=== PATIENT | female | born 1975 | race Caucasian/White ===

== ENCOUNTER → 2022-08-06 09:58 | Outpatient (BNVA) | payer OTHER, SELFPAY | PROVIDERS: PCP Internal Medicine; Visit Provider Nurse Practitioner Family | DX: Z13.89 Encounter for screening for other disorder (principal) ==

== ENCOUNTER → 2022-12-19 08:55 | Outpatient (BNVA) | payer OTHER, SELFPAY | PROVIDERS: PCP Internal Medicine; Visit Provider Nurse Practitioner Family ==

== ENCOUNTER 2023-04-10 08:02 | Outpatient (AMB) | payer OTHER, SELFPAY ==
--- NOTE | 2023-04-10 08:10 | A.OFFVIS_ITS ---
Intake Vital Signs 04/10/23 08:13 Height 5 ft 5 in Weight 174 lb BMI 29.0 BP 120/90 H Blood Pressure Location Rt brachial Position Sitting Pulse 72 Pulse Source Pulse Oximeter Pulse Oximetry (%) 99 Oxygen Delivery Method Room Air Intake Visit Reasons: 4m follow up Migraine prophylaxsis-Confirmed Intake Note: Patient presents for 4 month follow up migraine. Patient states I would say my migrainjes are a little better, I do think the medication os working most of the time. Allergies amoxicillin Allergy (Unknown, Verified 04/10/23 08:14) Unknown latex Allergy (Unknown, Verified 04/10/23 08:14) Unknown Medication List - Last Reconciled 04/10/23 by JASON Lynch acetaminophen (Tylenol) 325 mg PO QID PRN alprazolam 0.5 mg PO DAILY PRN ibuprofen (Advil) 200 mg PO Q6H PRN ibuprofen-diphenhydramine cit 200-38 mg (Advil PM) 1 cap PO BEDTIME levonorgestrel (Mirena) 1 device intrauterine magnesium oxide 400 mg PO BEDTIME 30 days ondansetron 4 mg PO Q6H PRN 30 days riboflavin (vitamin B2) 400 mg (4 x 100 mg) PO DAILY 30 days sumatriptan succinate 50 - 100 mg orally at onset of headache, may repeat in 2 hrs PRN; max 2 tabs per day or 4 tabs/week (may take with Ibuprofen or Aleve) 30 days HPI HPI Comments History of Present Illness Details 47-yr-old female presents for f/u visit. 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 Her HR, per her watch, was 160s- 180s for at least 5 minutes. She rested and took a Liquid IV drink and felt better. She also notes she has had increased stress r/t her father having increased cognitive difficulties. She has been having approx 4 migraine days per month. The Sumatriptan is almost always effective- however headache may linger for 2-7 hrs. She has stopped Magnesium- caused excess stooling. She has received Nerivio- but has not tried it yet- has not been able to read/follow the instructions while she is having a headache. [facility] Medical History Anxiety GERD (gastroesophageal reflux disease) Surgical History History of shoulder surgery Family History Father Diabetes Hypertension Mother Diabetes Cerebrovascular accident (CVA) Colon cancer Cardiovascular disease Acute kidney failure TIA (transient ischemic attack) CHF (congestive heart failure) Paternal Grandmother Leukemia Maternal Grandmother Cerebrovascular accident (CVA) Maternal Grandfather Myocardial infarction Sister Diabetes Anxiety Obesity Social History Alcohol intake: current Alcohol intake frequency: a few times a month Patient Tobacco Use Status: Former Tobacco user Quit Date: 05/29/1998 Review of Systems Const All systems reviewed & are unremarkable except as noted in HPI and below Physical Exam Vital Signs: Last Vital Signs Pulse 72 04/10/23 08:13 BP 120/90 H 04/10/23 08:13 Pulse Ox 99 04/10/23 08:13 Oxygen Delivery Method Room Air 04/10/23 08:13 BMI result Body Mass Index 29.0 Const General: cooperative and no acute distress Orientation/consciousness: patient oriented x3 HEENT Head: Yes normocephalic Resp Effort & Inspection: normal respiratory effort and able to speak in complete sentences Neuro General: patient oriented x3, gait normal and CN's II-XI intact bilaterally Cognition (Neuro): normal cognition Motor exam (neuro): 5/5 motor strength present throughout Psych Appearance: grossly normal Mental Status: mental status grossly normal Speech and movement: Normal speech and movement present Affect: normal affect Attitude: cooperative Thought process: Normal thought process present Thought content: Normal thought content present Insight: Good insight present (Psych) Judgement: Good judgement present (Psych) Assessment & Plan Assessment & Plan (1) Migraine with aura: Comment: episodic Code(s): G43.109 - Migraine with aura, not intractable, without status migrainosus (2) SVT (supraventricular tachycardia): Code(s): I47.1 - Supraventricular tachycardia Plan Pt advised to f/u w/ PCP regarding tachycardia episodes- pt may benefit from trial of Propranolol for migraine and HR control. ? For acute headache treatment: Continue Sumatriptan 100mg tab- 1/2 - 1 tab at onset of migraine, may repeat in 2 hrs (max 2 tabs per day). May take w/ Excedrin, Ibuprofen, Aleve, or Tylenol. Previous acute migraine medication trials: OTC NSAIDs, Excedrin, Sumatriptan- ? dose/effect. Acute migraine medication contraindications: None at this time. ? For headache prevention medication: Continue Riboflavin 400mg qam Stop Magnesium 400mg qhs. Trial Zofran ODt 4mg prn- pt has difficulty swallowing tabs. Previous migraine prevention medication trials: Magnesium- caused loose stools. Migraine prevention medication contraindications: None ? Pt advsied to try to use the Nerivio neuromodulation device when she does not have a migraine- so she can be comfortable using it once she does have a migraine attack, then may use nerivio qd prn. Other considerations- migraine cold caps. ? f/u in 3-4 months or sooner prn. Medications: Discontinued magnesium oxide may hold for loose stools Discontinued Reason: Patient no longer taking 400 mg PO BEDTIME 30 days 30 tabs 6RF Coding Level of Care Code Est Pt Level 4 (56653) Diagnoses Migraine with aura G43.109 SVT (supraventricular tachycardia) I47.1
[2023-04-10 08:13] VITALS: BP 120/90; PULSE 72; O2SAT 99; BMI 29.0
== END 2023-04-10 08:44 | disposition home or self-care (01) ==
PROVIDERS: PCP Internal Medicine; Visit Provider Nurse Practitioner Family
DX: G43.109 Migraine with aura, not intractable, without status migrainosus (principal); I47.1 Supraventricular tachycardia
CPT/HCPCS: 99214

== ENCOUNTER → 2023-04-10 08:02 | Outpatient (BNVA) | payer OTHER, SELFPAY | PROVIDERS: PCP Internal Medicine; Visit Provider Nurse Practitioner Family ==

== ENCOUNTER 2023-11-19 09:00 | Outpatient (AMB) | payer OTHER, SELFPAY ==
--- NOTE | 2023-11-19 09:06 | MHC.OFFVIS ---
Vital Signs 11/19/23 09:14 Height 5 ft 5 in Weight 174 lb BMI 29.0 BP 115/70 Blood Pressure Location Lt brachial Position Sitting Pulse 73 Pulse Source Pulse Oximeter Pulse Oximetry (%) 96 Oxygen Delivery Method Room Air Intake Visit Reasons: 4 mo f/u Migraines prophylaxsis-LVM Intake Note: Patient presents for 4 months f/u. Headaches are manageable. Is knowing when to take Sumatriptan. Allergies amoxicillin Allergy (Unknown, Verified 11/19/23 09:12) Unknown latex Allergy (Unknown, Verified 11/19/23 09:12) Unknown Medication List - Last Reconciled 11/19/23 by Ara Garzon, JASON acetaminophen (Tylenol) 325 mg PO QID PRN alprazolam 0.5 mg PO DAILY PRN azelastine 2 sprays intranasal BID 30 days ibuprofen (Advil) 200 mg PO Q6H PRN ibuprofen-diphenhydramine cit 200-38 mg (Advil PM) 1 cap PO BEDTIME levonorgestrel (Mirena) 1 device intrauterine ondansetron 4 mg PO Q6H PRN 30 days sumatriptan succinate 50 - 100 mg orally at onset of headache, may repeat in 2 hrs PRN; max 2 tabs per day or 4 tabs/week (may take with Ibuprofen or Aleve) 30 days HPI Comments Details: 48-yr-old female presents for f/u visit. Pt denies any significant interval medical changes. Pt has established care w/ cardiology. She is having 2-3 migraine attacks per month. But more recently having frontal bilateral sinus pressure- which she thinks may be r/t spring allergies. If these worsen, they become Migraine. She was not sure if she could take Sumatriptan for these headaches, She has never been tested for allergies. 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 She is using sumatriptan 2-3 times a month. Using Nerivio prn- which is usually helpful. Baseline headache characteristics: Aura: Sometimes may see squiggly lines. Headache: 8-9/10 Pressure or pulsating/throbbing pain Bilateral occipital region and in bilateral brow region. Sometimes may have bilateral upper maxillary sinus pain. A/w photophobia, phonophobia, osmophobia, neck tightness, nausea, not right in space dizziness, brain fog, fatigue, gen'l weakness, activity intolerance, at times speech slurring and Everette hand numbness/tingling. PFSH Medical History Anxiety GERD (gastroesophageal reflux disease) Surgical History History of shoulder surgery Family History Father Diabetes Hypertension Mother Diabetes Cerebrovascular accident (CVA) Colon cancer Cardiovascular disease Acute kidney failure TIA (transient ischemic attack) CHF (congestive heart failure) Paternal Grandmother Leukemia Maternal Grandmother Cerebrovascular accident (CVA) Maternal Grandfather Myocardial infarction Sister Diabetes Anxiety Obesity Social History Alcohol intake: current Alcohol intake frequency: a few times a month Patient Tobacco Use Status: Former Tobacco user Quit Date: 05/29/1998 Physical Exam Vital Signs: Last Vital Signs Pulse 73 11/19/23 09:14 BP 115/70 11/19/23 09:14 Pulse Ox 96 11/19/23 09:14 Oxygen Delivery Method Room Air 11/19/23 09:14 BMI result Body Mass Index 29.0 Const General: cooperative and no acute distress Orientation/consciousness: patient oriented x3 Resp Effort & Inspection: normal respiratory effort and able to speak in complete sentences Neuro General: patient oriented x3 Cranial nerves: Yes CN's II-XII intact bilaterally Cognition (Neuro): normal cognition Psych Appearance: grossly normal Mental Status: mental status grossly normal Speech and movement: Normal speech and movement present Affect: normal affect Attitude: cooperative Assessment & Plan Assessment & Plan (1) Migraine with aura: Comment: episodic Code(s): G43.109 - Migraine with aura, not intractable, without status migrainosus Category: Medical (2) Sleep difficulties: Code(s): G47.9 - Sleep disorder, unspecified Category: Medical (3) Seasonal allergies: Code(s): J30.2 - Other seasonal allergic rhinitis Category: Medical Plan Foloow-up w/ cardiology as scheduled. pt may benefit from trial of Propranolol for migraine and HR control. ? For acute headache treatment: Continue Sumatriptan 100mg tab- 1/2 - 1 tab at onset of migraine, may repeat in 2 hrs (max 2 tabs per day). May take w/ Excedrin, Ibuprofen, Aleve, or Tylenol. May trial Sumatriptan for sinus headache. Trial Azelastine nasal spray 1-2 sprays in each nostril qhs- in hopes this helps sinus headaches. Continue Nerivio 45 minute neurostimulation prn. Previous acute migraine medication trials: OTC NSAIDs, Excedrin, Sumatriptan- ? dose/effect. Acute migraine medication contraindications: None at this time. ? For headache prevention medication: Continue Riboflavin 400mg qam Zofran ODt 4mg prn- pt has difficulty swallowing tabs. Previous migraine prevention medication trials: Magnesium- caused loose stools. Migraine prevention medication contraindications: None ? ? f/u in 6 months or sooner prn. Medications: New azelastine administer into each nostril 2 sprays intranasal BID 30 days 30 mL 3RF Refilled sumatriptan succinate (0.5 - 1 x 100 mg) 50 - 100 mg orally at onset of headache, may repeat in 2 hrs PRN; max 2 tabs per day or 4 tabs/week (may take with Ibuprofen or Aleve) 30 days 12 tabs 6RF migraine headache Coding Level of Care Code Est Pt Level 4 (70986) Diagnoses Migraine with aura G43.109 Sleep difficulties G47.9 Seasonal allergies J30.2
[2023-11-19 09:14] VITALS: BP 115/70; PULSE 73; O2SAT 96; BMI 29.0
== END 2023-11-19 09:56 | disposition home or self-care (01) ==
PROVIDERS: PCP Internal Medicine; Visit Provider Nurse Practitioner Family
DX: G43.109 Migraine with aura, not intractable, without status migrainosus (principal); G47.9 Sleep disorder, unspecified; J30.2 Other seasonal allergic rhinitis
CPT/HCPCS: 99214

== ENCOUNTER → 2023-11-19 09:00 | Outpatient (BNVA) | payer OTHER, SELFPAY | PROVIDERS: PCP Internal Medicine; Visit Provider Nurse Practitioner Family ==

== ENCOUNTER 2024-06-13 08:02 | Outpatient (AMB) | payer OTHER, SELFPAY ==
[2024-06-13 08:23] VITALS: BP 122/74; PULSE 69; O2SAT 99; BMI 287.5
--- NOTE | 2024-06-13 08:23 | MHC.OFFVIS ---
Vital Signs 06/13/24 08:23 Height 5 ft 5 in Weight 1728 lb BMI 287.5 BP 122/74 Blood Pressure Location Lt brachial Position Sitting Pulse 69 Pulse Source Pulse Oximeter Pulse Oximetry (%) 99 Oxygen Delivery Method Room Air Intake Visit Reasons: 7 month F/U Accompanied by: Self / Same As Patient Allergies amoxicillin Allergy (Unknown, Verified 06/13/24 08:26) Unknown latex Allergy (Unknown, Verified 06/13/24 08:26) Unknown Medication List - Last Reconciled 06/13/24 by JASON Lynch acetaminophen (Tylenol) 325 mg PO QID PRN alprazolam 0.5 mg PO DAILY PRN azelastine 2 sprays intranasal BID 30 days ibuprofen (Advil) 200 mg PO Q6H PRN ibuprofen-diphenhydramine cit 200-38 mg (Advil PM) 1 cap PO BEDTIME levonorgestrel (Mirena) 1 device intrauterine ondansetron 4 mg PO Q6H PRN 30 days sumatriptan succinate 50 - 100 mg orally at onset of headache, may repeat in 2 hrs PRN; max 2 tabs per day or 4 tabs/week (may take with Ibuprofen or Aleve) 30 days Do you need a note to return to daycare/school/sports/work: No HPI Comments Details: 48-yr-old female presents for f/u visit. Pt reports she underwent a cardiac ablation in Mar, which she feels was very effective. She is having 1-2 migraine attacks per month. Once recent migraine was more severe, more severe nausea, longer duration despite taking her triptan and Nerivio- this one in particular was triggered by family stress. She does not think she took the zofran as it was in her kitchen and she could not get up. . She is trying to help manage her stress a it better. She is using sumatriptan 2-3 times a month. Using Nerivio prn- which is usually helpful. Baseline headache characteristics: Aura: Sometimes may see squiggly lines. Headache: 8-9/10 Pressure or pulsating/throbbing pain Bilateral occipital region and in bilateral brow region. Sometimes may have bilateral upper maxillary sinus pain. A/w photophobia, phonophobia, osmophobia, neck tightness, nausea, not right in space dizziness, brain fog, fatigue, gen'l weakness, activity intolerance, at times speech slurring and Everette hand numbness/tingling. PFSH Medical History Anxiety GERD (gastroesophageal reflux disease) Surgical History History of shoulder surgery Family History Father Diabetes Hypertension Mother Diabetes Cerebrovascular accident (CVA) Colon cancer Cardiovascular disease Acute kidney failure TIA (transient ischemic attack) CHF (congestive heart failure) Paternal Grandmother Leukemia Maternal Grandmother Cerebrovascular accident (CVA) Maternal Grandfather Myocardial infarction Sister Diabetes Anxiety Obesity Social History Alcohol intake: current Alcohol intake frequency: a few times a month Patient Tobacco Use Status: Former Tobacco user Physical Exam Vital Signs: Last Vital Signs Pulse 69 06/13/24 08:23 BP 122/74 06/13/24 08:23 Pulse Ox 99 06/13/24 08:23 Oxygen Delivery Method Room Air 06/13/24 08:23 BMI result Body Mass Index 287.5 Const General: cooperative and no acute distress Orientation/consciousness: patient oriented x3 Resp Effort & Inspection: normal respiratory effort and able to speak in complete sentences Neuro General: patient oriented x3 Cranial nerves: Yes CN's II-XII intact bilaterally Cognition (Neuro): normal cognition Psych Appearance: grossly normal Mental Status: mental status grossly normal Speech and movement: Normal speech and movement present Affect: normal affect Attitude: cooperative Assessment & Plan Assessment & Plan (1) Migraine with aura: Comment: episodic Code(s): G43.109 - Migraine with aura, not intractable, without status migrainosus Category: Medical (2) Sleep difficulties: Code(s): G47.9 - Sleep disorder, unspecified Category: Medical (3) Seasonal allergies: Code(s): J30.2 - Other seasonal allergic rhinitis Category: Medical (4) Nausea: Code(s): R11.0 - Nausea Category: Medical Plan Follow-up with cardiology as scheduled. ? For acute headache treatment: Continue Sumatriptan 100mg tab- 1/2 - 1 tab at onset of mild-moderate migraine, may repeat in 2 hrs (max 2 tabs per day). May take w/ Ibuprofen, Aleve, or Tylenol. Start sumatriptan 3 mg subcu injection p.r.n. severe migraine a/w nausea. Zofran ODt 4-8mg prn q4-6 hrs- pt has difficulty swallowing tabs. Benadryl 25-50 mg q.4 to 6 hours p.r.n. for rescue treatment. Electrolyte replacement beverages, such as liquid IV, 1-2 servings per day as needed. Continue Nerivio 45 minute neurostimulation prn. Previous acute migraine medication trials: OTC NSAIDs, Excedrin, Sumatriptan- ? dose/effect. Acute migraine medication contraindications: Sumatriptan 4 mg and 6 mg subcu injection due to latex allergy. ? For headache prevention medication: Concur with strategies to optimize stress management- if becomes ineffective, could consider referral to CBT, neuro biofeedback, or ACT type headache specific treatment. Continue Riboflavin 400mg qam Azelastine nasal spray 1-2 sprays in each nostril qhs- in hopes this helps sinus headaches. May use review 45 minute neurostimulation q.o.d.. Previous migraine prevention medication trials: Magnesium- caused loose stools. Migraine prevention medication contraindications: None ? ? f/u in 6 months or sooner prn. Medications: New diphenhydramine HCl (Benadryl) 25 - 50 mg (1 - 2 x 25 mg) PO BEDTIME 30 days PRN 20 caps 6RF migraine headache sumatriptan succinate do not exceed 4 doses per 24 hrs 3 mg (0.5 mL) subcut Q1H 1 month PRN 2 mL 6RF migraine headache MDD 12mg diphenhydramine HCl (Benadryl) 25 - 50 mg (1 - 2 x 25 mg) PO Q4-6H 30 days PRN 20 caps 6RF migraine headache Changed From ondansetron 4 mg PO Q6H 30 days PRN 20 tabs 2RF nausea and vomiting To ondansetron 4 - 8 mg (1 - 2 x 4 mg) PO Q4-6H 30 days PRN 24 tabs 6RF nausea and vomiting Refilled sumatriptan succinate (0.5 - 1 x 100 mg) 50 - 100 mg orally at onset of headache, may repeat in 2 hrs PRN; max 2 tabs per day or 4 tabs/week (may take with Ibuprofen or Aleve) 30 days 12 tabs 6RF migraine headache Coding Level of Care Code Est Pt Level 4 (66247) Diagnoses Migraine with aura G43.109 Sleep difficulties G47.9 Seasonal allergies J30.2 Nausea R11.0
== END 2024-06-13 09:10 | disposition home or self-care (01) ==
PROVIDERS: PCP Internal Medicine; Visit Provider Nurse Practitioner Family
DX: G43.109 Migraine with aura, not intractable, without status migrainosus (principal); G47.9 Sleep disorder, unspecified; J30.2 Other seasonal allergic rhinitis; R11.0 Nausea
CPT/HCPCS: 99214

== ENCOUNTER 2025-04-28 07:57 | Outpatient (AMB) | payer OTHER, SELFPAY ==
--- NOTE | 2025-04-28 07:56 | MHC.OFFVIS ---
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 Required: No Accompanied by: Self / Same As Patient Allergies amoxicillin Allergy (Unknown, Verified 04/28/25 07:56) Unknown latex Allergy (Unknown, Verified 04/28/25 07:56) Unknown Medication List - Last Reconciled 04/28/25 by JASON Lynch acetaminophen (Tylenol) 325 mg PO QID PRN alprazolam 0.5 mg PO DAILY PRN digital therapeutic,SARAH device ([employer] Digital Tommy (migraine)) As directed diphenhydramine HCl (Benadryl) 25 - 50 mg (1 - 2 x 25 mg) PO Q4-6H PRN 30 days fluocinolone acetonide oil 0.01% 2 drps otic (ears) BID ibuprofen (Advil) 200 mg PO Q6H PRN ibuprofen-diphenhydramine cit 200-38 mg (Advil PM) 1 cap PO BEDTIME levonorgestrel (Mirena) 1 device intrauterine ondansetron 4 - 8 mg (1 - 2 x 4 mg) PO Q4-6H PRN 30 days sumatriptan succinate 50 - 100 mg orally at onset of headache, may repeat in 2 hrs PRN; max 2 tabs per day or 4 tabs/week (may take with Ibuprofen or Aleve) 30 days sumatriptan succinate 3 mg (0.5 mL) subcut Q1H PRN 1 month MDD 12mg triamcinolone acetonide 0.1% appl topical BID PRN Do you need a note to return to daycare/school/sports/work: No HPI Comments Details: 49-yr-old female presents for f/u visit of migraine She had cardiology f/u after the Mar 2024 cardiac ablation, and everything still looks good. She denies any symptomatic palpiations. She is having 1 migraine attacks per month. She did have an interval more severe attack, which might have been attributed to stress, though she did not realize she was having before she had the migraine attack. And she notes that she did not have her sumatriptan tabs, as her pharmacy would not fill this as she also has the order for Zembrace. In sometimes, she would rather take the sumatriptan tabs then the same brace, sumatriptan injection. Using Nerivio prn- which is usually helpful. She is wondering if we can take over managing her alprazolam, which she uses for intermittent stress, such as end of her monthly work billing cycle. She notes that her PCP office has been prescribing this to her, but asked her to start seeing a mental health prescriber and therapist, however they suggested she see our either closed or not currently accepting patients. She notes that when her dress level is increased, this may trigger a migraine attack. 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 Baseline headache characteristics: Aura: Sometimes may see squiggly lines. Headache: 8-9/10 Pressure or pulsating/throbbing pain Bilateral occipital region and in bilateral brow region. Sometimes may have bilateral upper maxillary sinus pain. A/w photophobia, phonophobia, osmophobia, neck tightness, nausea, not right in space dizziness, brain fog, fatigue, gen'l weakness, activity intolerance, at times speech slurring and Everette hand numbness/tingling. [facility] Medical History Anxiety GERD (gastroesophageal reflux disease) Surgical History History of shoulder surgery Family History Father Diabetes Hypertension Mother Diabetes Cerebrovascular accident (CVA) Colon cancer Cardiovascular disease Acute kidney failure TIA (transient ischemic attack) CHF (congestive heart failure) Paternal Grandmother Leukemia Maternal Grandmother Cerebrovascular accident (CVA) Maternal Grandfather Myocardial infarction Sister Diabetes Anxiety Obesity Social History Alcohol intake: current Alcohol intake frequency: a few times a month Patient Tobacco Use Status: Former Tobacco user Physical Exam Vital Signs: Last Vital Signs Pulse 77 10/31/25 07:57 BP 120/76 04/28/25 07:57 Pulse Ox 97 04/28/25 07:57 Oxygen Delivery Method Room Air 04/28/25 07:57 BMI result Body Mass Index 28.0 Const General: cooperative and no acute distress Orientation/consciousness: patient oriented x3 Resp Effort & Inspection: normal respiratory effort and able to speak in complete sentences Neuro General: patient oriented x3 Cranial nerves: Yes CN's II-XII intact bilaterally Cognition (Neuro): normal cognition Psych Appearance: grossly normal Mental Status: mental status grossly normal Speech and movement: Normal speech and movement present Affect: normal affect Attitude: cooperative Assessment & Plan Assessment & Plan (1) Migraine with aura: Comment: episodic Code(s): G43.109 - Migraine with aura, not intractable, without status migrainosus Category: Medical Qualifiers: Status migrainosus presence: without status migrainosus Intractability: not intractable Qualified Code(s): G43.109 - Migraine with aura, not intractable, without status migrainosus (2) Sleep difficulties: Code(s): G47.9 - Sleep disorder, unspecified Category: Medical (3) Seasonal allergies: Code(s): J30.2 - Other seasonal allergic rhinitis Category: Medical (4) Nausea: Code(s): R11.0 - Nausea Category: Medical (5) Anxiety: Code(s): F41.9 - Anxiety disorder, unspecified Category: Medical Plan Follow-up with cardiology as scheduled. For anxiety: We will refilled the alprazolam 0.5 mg daily as needed. However, discussed that there are more effective strategies to manage chronic anxiety and stress, therefore I will initiate a referral to a mental health clinic that can provide both psychiatric and therapeutic counseling services. If we can not find a clinic accepting new patients, we will refer her to [place] [facility] [place] of medication management. ? For acute headache treatment: Advised her that she can have both sumatriptan tablets and injections, as they are used for different migraine attack severities. Continue Sumatriptan 100mg tab- 1/2 - 1 tab at onset of mild-moderate migraine, may repeat in 2 hrs (max 2 tabs per day). May take w/ Ibuprofen, Aleve, or Tylenol. Continue sumatriptan 3 mg subcu injection p.r.n. severe migraine a/w nausea. Zofran ODt 4-8mg prn q4-6 hrs- pt has difficulty swallowing tabs. Benadryl 25-50 mg q.4 to 6 hours p.r.n. for rescue treatment. Electrolyte replacement beverages, such as liquid IV, 1-2 servings per day as needed. Continue Nerivio 45 minute neurostimulation prn. Previous acute migraine medication trials: OTC NSAIDs, Excedrin, Sumatriptan- ? dose/effect. Acute migraine medication contraindications: Sumatriptan 4 mg and 6 mg subcu injection due to latex allergy. Future considerations: Emeterm smart antinausea watch. ? For headache prevention medication: Concur with strategies to optimize stress management- if becomes ineffective, could consider referral to CBT, neuro biofeedback, or ACT type headache specific treatment. Continue Riboflavin 400mg qam Azelastine nasal spray 1-2 sprays in each nostril qhs- in hopes this helps sinus headaches. May use Nerivio 45 minute neurostimulation q.o.d.. Previous migraine prevention medication trials: Magnesium- caused loose stools. Migraine prevention medication contraindications: None ? ? f/u in 6 months or sooner prn. Orders: Referrals Psychiatry Referral F41.9 - Anxiety disorder, unspecified Medications: Changed From alprazolam 0.5 mg PO DAILY PRN anxiety To alprazolam 0.5 mg PO DAILY PRN 30 tabs 1RF anxiety 30 days Refilled sumatriptan succinate 50 - 100 mg orally at onset of headache, may repeat in 2 hrs PRN; max 2 tabs per day or 4 tabs/week (may take with Ibuprofen or Aleve) 12 tabs 6RF migraine headache 30 days ondansetron 4 - 8 mg (1 - 2 x 4 mg) PO Q4-6H PRN 24 tabs 6RF nausea and vomiting 30 days Coding Level of Care Code Est Pt Level 4 (18170) Diagnoses Migraine with aura and without status migrainosus, not intractable G43.109 Status migrainosus presence: without status migrainosus Intractability: not intractable Sleep difficulties G47.9 Seasonal allergies J30.2 Nausea R11.0 Anxiety F41.9
[2025-04-28 07:57] VITALS: BP 120/76; PULSE 77; O2SAT 97; BMI 28.0
--- OUTSIDE RECORDS SUMMARY | 2025-04-28 08:00 | XMS_ITS | Clinical Summary ---
Author Organization [address] [facility] Address [address] [place] [address] Phone Care Team Providers Care Assembly Lead Person Name Role Phone Sergo Curran MD Primary Care Provider [phone] Allergies Active Allergy Reactions Criticality Noted Date Comments Amoxicillin Trihydrate 08/17/2006 thrush in mouth Latex Rash Low 06/09/2024 Medications ibuprofen (ADVIL,MOTRIN) 200 mg tablet Take 200 mg by mouth every 6 hours as needed. Active levonorgestreL (Mirena) 21 mcg/24 hr (8 yrs) 52 mg IUD 5 yrs implant Active Zembrace Symtouch 3 mg/0.5 mL pen injector injection Inject 0.5 mL (3 mg total) under the skin 1 (one) time if needed. 5 Active ondansetron ODT (ZOFRAN-ODT) 4 mg disintegrating tablet Dissolve 1 tablet (4 mg total) on top of the tongue every 6 (six) hours if needed for nausea. 5 Active hydrOXYzine HCL (ATARAX) 25 mg tablet TAKE 1 TABLET (25 MG TOTAL) BY MOUTH TWICE A DAY NEEDED FOR ANXIETY 30 tablet 5 5 Active fluocinolone acetonide oiL 0.01 % dropsIndications:D ry both ear canals 2 drops into both ears twice a day as needed for dry and itchy ears. 1 each 3 5 Active fluocinolone acetonide oiL 0.01 % dropsIndications:D ry both ear canals 2 drops into both ears twice a day as needed for dry and itchy ears. 1 each 3 025 Discontin ued(Reord er) Active Problems Problem Noted Date Diagnosed Date Varicose veins of lower extremity 09/27/2024 Chest pain 09/30/2023 Overview (03/30/2024): Last Assessment & Plan: The patient has a history of atypical chest discomfort. She underwent an exercise stress test where she achieved 89% of MPHR and developed symptoms of chest heaviness and palpitations at peak exercise with no ischemic EKG changes. Subsequently, she underwent a stress echocardiogram September 2023 which showed no echocardiographic evidence of exercise-induced cardiac ischemia. No ischemic EKG changes with exercise were noted. She also underwent an echocardiogram which showed normal LV function and mild tricuspid regurgitation and mild pulmonic valve insufficiency. We discussed these results in depth today. She has a significant amount of anxiety regarding her symptoms and recent testing. We discussed that she could undergo a cardiac CT scan for further evaluation. Given her symptoms and risk factors for CAD, we will need to consider the possibility of underlying coronary artery disease as a cause of her symptoms. Therefore, the patient has an intermediate pretest probability for the presence of obstructive coronary artery disease (2021 ACC chest pain guidelines). The patient had a stress test in the past that did not show any evidence of ischemia. As such, given her exertional and continued symptoms, we will proceed with a cardiac CT scan in order to evaluate for any obstructive coronary artery disease as a cause of her symptoms (the use of a cardiac CT scan for evaluation of possible coronary artery disease is recommended by 2021 ACC chest pain guidelines as a level 1 A recommendation). Assessment & Plan (03/21/2025 12:50 PM EDT): Orders: ECG 12 lead Adjustment disorder with mixed anxiety and depre ssed mood 03/08/2019 Anxiety state 06/01/2006 Overview (03/30/2024): Anxiety state, unspecified Headache 02/09/2006 Resolved Problems Problem Noted Date Diagnosed Date Resolved Date SVT (supraventricular tachyc ardia) ([facility] V24) 03/02/2024 08/31/2024 Palpitations 04/10/2023 08/31/2024 Overview (03/30/2024): Last Assessment & Plan: The patient has a history of palpitations. She has not had any prolonged episodes of palpitations which prompted recent ER visit last year. She was thought to have presumptive SVT although no clear EKG evidence was documented. She underwent a 48-hour Holter monitor September 2023 which showed no significant arrhythmias. It was also noted that she had no symptoms during the monitoring period. Will arrange for a 30 day looping monitor for further evaluation given she did not have any episodes or symptoms during the 48 hour Holter monitor completed. We also discussed that given she is under significant amount of stress recently, this could be contributing to her symptoms as well. She will continue to follow with her primary care provider. We reviewed the possible triggers of palpitations including caffeine consumption, alcohol consumption, cigarette smoking, inadequate sleeping patterns, and stress. She also underwent TSH which was noted to be within normal limits. At this point, the patient will attempt to avoid the usual triggers. I will notify her of the results as soon as the become available. We also discussed the use of [employer] pranav if she does not have any symptomatic episodes during the looping monitor period. Abnormal mammogram 06/19/2020 Overview (03/30/2024): 06/12/2020: [facility] [place] Encounters Date Type Department Care Team Description 04/17/2025 8:00 AM EDT Office Visit [facility] [address] [facility] [place] [address] Sergo Curran MD Anxiety state (Primary Dx); Dry both ear canals 03/21/2025 9:20 AM EDT Office Visit [facility] [address] [place] [address] Carmen Olvera MD SVT (supraventricular tachycardia) ([facility] V24) (Primary Dx); Chest pain, unspecified type; PSVT (paroxysmal supraventricular tachycardia) (CMS/HCC V24) 03/02/2025 1:57 PM EDT - 03/02/2025 11:59 PM EDT Hospital Encounter Radiology Department - [address] [address] Abnormal mammogram Discharge Disposition: Home or Self Care 02/06/2025 7:35 AM EDT - 02/06/2025 11:59 PM EDT Hospital Encounter Radiology Department - [address] [address] Encounter for screening mammogram for breast cancer Discharge Disposition: Home or Self Care from Last 3 Months Immunizations Immunization Administration Dates Next Due Influenza Quadravalent, MDCK , 0.5ml, preservative free (Flucelvax) 6mo and older 03/13/2020 Influenza Quadrivalent, 0.5m l, preservative free (Fluarix; FluLaval; Fluzone) ages 6mo and older (Afluria) 3yo and older 03/30/2023,03/18/2022,04/29/2021 Influenza trivalent, 0.5mL, preservative free (Fluarix; FluLaval; Fluzone) ages 6mo and older (Afluria) 3 years and older 04/16/2025 Influenza trivalent, MDCK, 0 .5mL, preservative free (Flucelvax) 6mo and older 03/07/2024 Influenza trivalent, with preservative (Fluzone; Afluria) 6mo and older 04/13/2019,03/23/2018,02/20/2017,2015 MMR, measles mumps and rubel la Live (Priorix; M-M-R II) 12mo and older 12/27/1990,02/16/1978 Moderna SARS-CoV-2 COVID-19, mRNA, LNP-S, preservative free 03/30/2023 PPD Test 02/13/2006 Td Tetanus diptheria (Tdvax) 7yo and older 12/15/2019,12/27/1990 Tdap Tetanus diptheria acell ular pertussis (Boostrix; Adacel) 7yo and older 02/13/2015 Surgical History Surgery Date Site/Laterality Comments ESOPHAGOGASTRODUODENOSCOPY ABLATION Done on 04/14/2024 at [facility] w SR indications:SVT ABLATION DONE ON 04/14/2024 AT [facility] W SR INDICATIONS:SVT ABLATION Medical History Medical History Date Comments Abnormal mammogram 06/19/2020 Dizziness Family history of colon cancer in mother Colon polyp IN FATHER Migraine Pectus excavatum SVT (supraventricular tachycardia) ([facility] V24) 03/02/2024 Family History Medical History Relation Name Comments Diabetes Father HTN Father Heart attack Maternal Grandfather Stroke Maternal Grandmother Diabetes Mother Stroke Mother Cancer Paternal Grandfather Leukemia Paternal Grandfather Relation Name Status Comments Father Alive Maternal Grandfather Maternal Grandmother Mother Alive Paternal Grandfather Social History Tobacco Use Types Packs/Day Years Used Date Smoking Tobacco: Former Cigarettes Smokeless Tobacco: Never Tobacco Cessation:Counseling Given: Not Answered Alcohol Use Standard Drinks/Week Comments Yes 0 (1 standard drink = 0.6 oz pur e alcohol) OCC Housing Instability Answer Date Recorde d Are you worried that in the next 2 months you may not have stable housing? No 04/10/2025 Food Access & Nutrition Answer Date Rec orded Do you have access to a vari ety of food including fruits and vegetables? Yes 04/10/2025 Access to Healthcare Answer Date Record ed Within the last 3 months, ho w many times did you visit the emergency department for your medical care? 0 04/10/2025 Health Literacy Answer Date Recorded How often do you need to hav e someone help you when you read instructions, pamphlets, or other written material from your doctor or pharmacy? Never 04/10/2025 Caregiver: How often do you need to have someone help you when you read instructions, pamphlets, or other written material from your doctor or pharmacy? Not on file 04/10/2025 Financial Risk Answer Date Recorded How hard is it for you to pa y for the very basics like food, housing, medical care, and air conditioning / heating? Not very hard 04/10/2025 Transportation Answer Date Recorded Has the lack of transportati on kept you from meetings, work, or from getting things needed for daily living? No Has the lack of transportati on kept you from medical appointments or from getting medications? No 04/10/2025 Social Isolation Answer Date Recorded How often do you feel lonely or isolated from th ose around you? Never 04/10/2025 Food Risk Answer Date Recorded Within the past 12 months we worried whether our food would run out before we got money to buy more. Never true 04/10/2025 Within the past 12 months th e food we bought just didn't last and we didn't have money to get more. Never true 04/10/2025 Dependent Care Answer Date Recorded Do you need help finding or paying for care for your loved ones. For example, early childhood education coordinator or elderly care for an older adult? Patient declined 04/10/2025 Education Answer Date Recorded Do you think completing more education or training, like finishing a GED, going to college, or learning a trade, would be helpful for you? Yes 04/10/2025 Employment and Income Answer Date Recor ded During the last four weeks, have you been actively looking for work? No 04/10/2025 Living Situation Answer Date Recorded What is your living situation? Unrecognized valu e 04/10/2025 Comments No Sex and Gender Information Value Date Recorded Sex Assigned at Not on file Legal Sex Female 10:12 PM EST Gender Identity Not on file Sexual Orientation Not on file Obstetrics History Para Term AB IAB SAB Ectopic Multiple Livin g Live Births 1 1 1 Date Outcome GA Total Labor Labor/2nd/3rd Weight Sex Type Anes PTL Faina A1 A5 Name Clin Term Last Filed Vital Signs Vital Sign Reading Time Taken Comments Blood Pressure 122/80 04/17/2025 8:03 AM EDT Pulse 72 04/17/2025 8:03 AM EDT Temperature - - Respiratory Rate - - Oxygen Saturation 96% 03/21/2025 9:27 AM EDT Inhaled Oxygen Concentration - - Weight 75.3 kg (166 lb) 04/17/2025 8:03 AM EDT Height 165.1 cm (5' 5 ) 04/17/2025 8:03 AM EDT Body Mass Index 27.62 04/17/2025 8:03 AM EDT Plan of Treatment Health Maintenance Due Date Last Done Comments Colorectal Cancer Screening: Colonoscopy 1976 Hepatitis B Vaccines (1 of 3 - 19+ 3-dose series) 11/08/1995 HIV Screening 05/31/2022 Hepatitis C Screening 05/31/2022 Cervical Cancer Screening: Pap Smear 10/26/2025 10/26/2022 Social Influencers of Health Screening 04/10/2026 04/10/2025 Breast Cancer Screening 03/02/2027 03/02/20 25, 02/06/2025, 01/29/2024, Additional history exists Cholesterol Screening (Lipid Panel) 01/28/2029 01/29/2024, 01/29/2024 DTaP,Tdap,and Td Vaccines (4 - Td or Tdap) 12/14/2029 12/15/2019, 02/13/2015, 12/27/1990 RSV Immunization Adult Patients (1 - 1-dose 75+ series) 11/08/2051 MMR Vaccines Completed 12/27/1990, 02/16/1978 Depression Screening Completed 04/10/2025 COVID-19 Vaccine Completed 04/16/2025, 02/2024, 03/30/2023, Additional history exists Influenza Vaccine Completed 04/16/2025, , 03/30/2023, Additional history exists HIB Vaccines Aged Out No longer eligi ble based on patient's age to complete this topic HPV Vaccines Aged Out No longer eligi ble based on patient's age to complete this topic Hepatitis A Vaccines Aged Out No long er eligible based on patient's age to complete this topic IPV Vaccines Aged Out No longer eligi ble based on patient's age to complete this topic Meningococcal ACWY Vaccine Aged Out N o longer eligible based on patient's age to complete this topic Meningococcal B Vaccine Aged Out No l onger eligible based on patient's age to complete this topic Pneumococcal Vaccine: Pediatrics (0 to 5 Years) and At-Risk Patients (6 to 49 Years) Aged Out No longer eligible based on patient's age to complete this topic RSV Immunization Patients Under 20 months Aged Out No longer eligible based on patient's age to complete this topic Varicella Vaccines Aged Out No longer eligible based on patient's age to complete this topic Procedures Procedure Name Priority Date/Time Associated Diagnosis Comments ECG 12-LEAD Routine 03/21/2025 9:38 AM EDT SVT (supraventricular tachycardia) (CMS/HCC V24) Chest pain, unspecified type MG MAMMO DIGITAL DIAGNOSTIC W EARL RIGHT Routine 03/02/2025 2:03 PM EDT Abnormal mammogram MG MAMMO DIGITAL SCREENING W EARL BILAT Routine 02/06/2025 7:54 AM EDT Encounter for screening mammogram for breast cancer LIPID PANEL Routine 01/29/2024 HM PAP SMEAR Routine 10/26/2022 from Last 3 Months or Most Recently Relevant to Health Maintenance Results * ECG 12 lead (03/21/2025 9:38 AM EDT) Ventricular Rate ECG 62 BPM GEMUSE Atrial Rate 62 BPM GEMUSE P-R Interval 136 ms GEMUSE QRS Duration 96 ms GEMUSE Q-T Interval 414 ms GEMUSE QTc 420 ms GEMUSE P Wave [place] 66 degrees GEMUSE R [place] 11 degrees GEMUSE T [place] 43 degrees GEMUSE ECG Interpretation Normal sinus rhythm Low voltage QRS When compared with ECG of 09-JUN-2024 08:54, Nonspecific T wave abnormality , improved in Anterior leads Confirmed by JAVON OLVERA ([id number]) on 03/21/2025 7:56:32 PM GEMUSE 03/21/2025 9:38 AM EDT 03/21/2025 7:56 PM EDT us Carmen Olvera MD ECG ORDERABLES Final Resu lt GEMUSE * MG Mammo Digital Diagnostic w Earl Right (03/02/2025 2:03 PM EDT) Anatomical Region Laterality Modality Breast Right Mammography 03/02/2025 2:05 PM EDT Impressions 03/02/2025 2:18 PM EDT 1. No mammographic evidence of malignancy 2. Scattered fibroglandular tissue BI-RADS CATEGORY: 2 - BENIGN RECOMMENDATION: Return to annual mammography. -------- FINAL REPORT -------- Dictated By: Waleska Denis Dictated Date: 03/02/2025 14:05 ET Assigned Physician: Waleska Denis Reviewed and Electronically Signed By: Waleska Denis Signed Date: 03/02/2025 14:18 ET Workstation ID: [id number] Transcribed By: Self Edit Transcribed Date: 03/02/2025 14:05 ET Narrative 03/02/2025 2:18 PM EDT RIGHT DIGITAL 3D DIAGNOSTIC MAMMOGRAPHY HISTORY: Workup for CC view lateral middle depth asymmetry COMPARISON: Mammogram from 02/06/2025 Technique: CC spot compression, full-field ML 3-D FINDINGS: BREAST DENSITY: B - There are scattered areas of fibroglandular density. Right breast CC view lateral middle depth asymmetry becomes equal in density on spot compression and is consistent with benign summation of fibroglandular tissue. Procedure Note Waleska Denis MD - 03/02/2025 RIGHT DIGITAL 3D DIAGNOSTIC MAMMOGRAPHY HISTORY: Workup for CC view lateral middle depth asymmetry COMPARISON: Mammogram from 02/06/2025 Technique: CC spot compression, full-field ML 3-D FINDINGS: BREAST DENSITY: B - There are scattered areas of fibroglandular density. Right breast CC view lateral middle depth asymmetry becomes equal indensity on spot compression and is consistent with benign summation offibroglandular tissue. IMPRESSION: 1. No mammographic evidence of malignancy 2. Scattered fibroglandular tissue BI-RADS CATEGORY: 2 - BENIGN RECOMMENDATION: Return to annual mammography. -------- FINAL REPORT -------- Dictated By: Waleska Denis Dictated Date: 03/02/2025 14:05 ET Assigned Physician: Waleska Denis Reviewed and Electronically Signed By: Waleska Denis Signed Date: 03/02/2025 14:18 ET Workstation ID: [id number] Transcribed By: Self Edit Transcribed Date: 03/02/2025 14:05 ET us Sergo Curran MD IMG BI PROCEDURES Final Result * (ABNORMAL) MG Mammo Digital Screening w Earl bilat (02/06/2025 7:54 AM EDT) Anatomical Region Laterality Modality Breast Bilateral Mammography 02/07/2025 3:13 PM EDT Impressions 02/07/2025 3:18 PM EDT 1. Left: No mammographic evidence of malignancy 2. Right: Indeterminate CC view lateral middle depth asymmetry 3. Scattered fibroglandular tissue BI-RADS CATEGORY: 0 - INCOMPLETE - NEED ADDITIONAL IMAGING EVALUATION RECOMMENDATION: Additional right breast imaging recommended. Right breast CC view spot compression, full-field ML, targeted ultrasound Mammo Location: [facility], [address] [place] [address], [phone], . -------- FINAL REPORT -------- Dictated By: Waleska Densi Dictated Date: 02/07/2025 15:13 ET Assigned Physician: Waleska Denis Reviewed and Electronically Signed By: Waleska Denis Signed Date: 02/07/2025 15:18 ET Workstation ID: [id number] Transcribed By: Self Edit Transcribed Date: 02/07/2025 15:13 ET Narrative 02/07/2025 3:18 PM EDT A BILATERAL DIGITAL 3D SCREENING MAMMOGRAPHY HISTORY: Routine screening. COMPARISON: Multiple priors dating back to 06/12/2020 Technique: Bilateral full field digital mammography (3D) was performed using standard CC and MLO projections CAD was used to evaluate this mammogram. FINDINGS: Right: Indeterminate CC view lateral middle depth asymmetry Left: No suspicious masses, groups of microcalcification or areas of architectural distortion identified. Stable typically benign parenchymal asymmetries. BREAST DENSITY: B - There are scattered areas of fibroglandular density. Procedure Note Waleska Denis MD - 02/07/2025 A BILATERAL DIGITAL 3D SCREENING MAMMOGRAPHY HISTORY: Routine screening. COMPARISON: Multiple priors dating back to 06/12/2020 Technique: Bilateral full field digital mammography (3D) was performedusing standard CC and MLO projections CAD was used to evaluate this mammogram. FINDINGS: Right: Indeterminate CC view lateral middle depth asymmetry Left: No suspicious masses, groups of microcalcification or areas ofarchitectural distortion identified. Stable typically benign parenchymalasymmetries. BREAST DENSITY: B - There are scattered areas of fibroglandular density. IMPRESSION: 1. Left: No mammographic evidence of malignancy 2. Right: Indeterminate CC view lateral middle depth asymmetry 3. Scattered fibroglandular tissue BI-RADS CATEGORY: 0 - INCOMPLETE - NEED ADDITIONAL IMAGING EVALUATION RECOMMENDATION: Additional right breast imaging recommended. Right breast CC view spotcompression, full-field ML, targeted ultrasound Mammo Location: [facility], [address] [place] [address], [id number], . -------- FINAL REPORT -------- Dictated By: Waleska Dneis Dictated Date: 02/07/2025 15:13 ET Assigned Physician: Waleska Denis Reviewed and Electronically Signed By: Waleska Denis Signed Date: 02/07/2025 15:18 ET Workstation ID: [id number] Transcribed By: Self Edit Transcribed Date: 02/07/2025 15:13 ET Sergo Curran MD IMG BI PROCEDURES Final Result * (ABNORMAL) Lipid panel (01/29/2024) LDL/HDL Ratio 3 0 - 4 Triglycerides 68 0 - 150 mg/dL Cholesterol 207(A) 0 - 200 mg/dL HDL 82 >=40 mg/dL LDL Cholesterol 112(A) 0 - 100 mg/dL Blood Venous blood specimen / Unknown Historical Provider LAB BLOOD ORDERABLES Mame l Result * Hm Pap Smear (10/26/2022) Pap smear No interpretation , Abstracted Historical Provider HEALTH MAINTENANCE Final Result from Last 3 Months or Most Recently Relevant to Health Maintenance Insurance [facility] [address] [place] [address] Care Teams Assembly Lead Person Relationship Specialty Start Date End Date Sergo Curran MD [address] [place] [id number] PCP - General Internal Medicine 04/27/24
== END 2025-04-28 08:57 | disposition home or self-care (01) ==
LOC: HO.HSMS 07:58
PROVIDERS: PCP Internal Medicine; Visit Provider Nurse Practitioner Family
DX: G43.109 Migraine with aura, not intractable, without status migrainosus (principal); G47.9 Sleep disorder, unspecified; J30.2 Other seasonal allergic rhinitis; R11.0 Nausea; F41.9 Anxiety disorder, unspecified
CPT/HCPCS: 99214